=== PATIENT | female | born 1970 | race Caucasian/White ===

== ENCOUNTER → 2021-06-22 | Outpatient (CLI) | payer OTHER ==
[~2021-06-22] MED LIST: IBUP600 PO; PENVK500 PO; Zofran4 MG PO
== END ==
LOC: LAB SHORT 17:29 → LAB 17:29
DX: R35.0 Frequency of micturition (principal)
CPT/HCPCS: 87086

== ENCOUNTER → 2021-11-09 | Outpatient (CLI) | payer OTHER | END | disposition home or self-care (01) | LOC: LAB 13:25 → LAB SHORT 13:25 | DX: Z11.59 Encounter for screening for other viral diseases (principal) | CPT/HCPCS: 36415; 86317 ==

== ENCOUNTER 2025-06-28 06:46 | Emergency (ER) | payer OTHER ==
[~2025-06-28] VITALS: Ht 162.6 cm; Wt 59.0 kg
[2025-06-28 07:49] VITALS: BP 130/82
[2025-06-28] MEDS ORDERED: Tetracaine HCl/Pf 0.5% Opth Soln 4 ml LEFTEYE ONE (08:20)
[2025-06-28] MEDS ORDERED: Fluorescein Sod 1MG Opth Strips BOTHEYES ONE (08:20)
[2025-06-28] MEDS ORDERED: ERYT.5TO LEFTEYE (09:31)
== END 2025-06-28 09:41 | disposition home or self-care (01) ==
LOC: ER 06:46
DX: S05.02XA Injury of conjunctiva and corneal abrasion without foreign body, left eye, initial encounter (principal); Z88.6 Allergy status to analgesic agent; Z88.5 Allergy status to narcotic agent; W20.8XXA Other cause of strike by thrown, projected or falling object, initial encounter
CPT/HCPCS: A9270